=== PATIENT | male | born 1955 | race Two or more races ===

== ENCOUNTER 2017-03-13 17:05 | Inpatient (IN) | payer MEDICAID ==
[~2017-03-13] VITALS: Ht 170.2 cm; Wt 57.7 kg
[2017-03-13 19:44] LABS: Basophils # (auto) 0 uL; Basophils % (auto) 0.3 % (0.0-2.0); Eosinophils # (auto) 0.1 uL; Eosinophils % (auto) 0.6 % (0.0-7.0); Hematocrit 37.4 % (41.0-53.0); Hemoglobin 12.7 g/dL (13.5-17.5); Lymphocytes # (auto) 1.7 uL; Lymphocytes % (auto) 18.7 % (10.0-50.0); Mean Corpuscular Hemoglobin 29.3 pg (28.0-32.0); Mean Corpuscular Volume 86.2 fL (80.0-100.0); Monocytes # (auto) 0.6 uL; Monocytes % (auto) 6.3 % (0.0-12.0); Neutrophils # (auto) 6.8 uL; Neutrophils % (auto) 74.1 % (37.0-80.0); Platelet Count (auto) 307 10^3/uL (140-450); Red Blood Cells 4.33 10^6/uL (4.5-5.90); White Blood Cell 9.2 10^3/uL (4.4-10.8)
[2017-03-13 20:00] LABS: BUN/Creatinine Ratio 32.5; Calcium 8.5 mg/dL (8.5-10.1); Potassium 3.9 mmol/L (3.5-5.1)
[2017-03-13 20:03] LABS: Bilirubin, Total 0.2 mg/dL (0.2-1.0); Total Protein 6.8 g/dL (6.4-8.2)
[2017-03-14] MEDS ORDERED: SODIUM CHLORIDE 0.9% 1,000 ML IV SCH (06:36)
[2017-03-14] MEDS ORDERED: ACETAMINOPHEN 325 MG TAB PO PRN (06:45)
[2017-03-14] MEDS ORDERED: cloNIDine HCL 0.1 MG TAB PO PRN (06:45)
[2017-03-14] MEDS ORDERED: ONDANSETRON HCL 4 MG/2 ML VIAL IV PRN (06:45)
[2017-03-14] MEDS ORDERED: TEMAZEPAM 15 MG CAP PO PRN (06:45)
[2017-03-14] MEDS ORDERED: DEXTROSE (50%) 50ML SYRG IV PRN (06:45)
[2017-03-14] MEDS: ENOXAPARIN SOD 40 MG/0.4 ML SYRINGE SC SCH (09:08)
[2017-03-14] MEDS: FAMOTIDINE 20 MG TAB PO SCH ×2 (09:08→22:16)
[2017-03-14 09:30] VITALS: BP 153/81
[2017-03-14] MEDS: HYDROcodone-ACET 5/325MG TAB PO PRN ×3 (10:15→22:15)
[2017-03-14] MEDS: InsuLIN REG 1unit/0.01ml Soln (100units/ml) SC SCH ×2 (11:38→18:17)
[2017-03-14] MEDS: ACCU-CHEK COMFORT CURVE STRIP VI SCH ×2 (11:38→18:16)
[2017-03-14] MEDS ORDERED: CLON1TAB PO (12:05)
[2017-03-14] MEDS ORDERED: INSLISPI SC (12:05)
[2017-03-14 12:30] VITALS: BP 124/79
[2017-03-14] MEDS ORDERED: cefTRIAXone 1GM/10ml IVPUSH 10 ML IV ONE (14:00)
[2017-03-14] MEDS ORDERED: CLINDAMYCIN 300MG IV 50 ML IV ONE (14:45)
[2017-03-14 15:02] LABS: Hepatitis B Surface Antibody Negative
[2017-03-14] MEDS: SODIUM CHLORIDE 0.9% 1,000 ML IV SCH (15:03)
[2017-03-14 15:13] LABS: Hepatitis B Surface Antigen Negative (Negative)
[2017-03-14 15:41] LABS: Hepatitis A Total Antibody Positive
[2017-03-14 16:02] LABS: Alcohol, Urine < 3.0 mg/dL (0-5); Amphetamine Screen, Urine NEGATIVE (NEGATIVE); Barbiturate Scree,Urine NEGATIVE (NEGATIVE); Benzodiazephine Screen, Urine NEGATIVE (NEGATIVE); Cannabinoid Screen, Urine POSITIVE (NEGATIVE); Cocaine Screen, Urine NEGATIVE (NEGATIVE); Opiate Scree,Urine NEGATIVE (NEGATIVE); Phencyclidine Screen, Urine NEGATIVE (NEGATIVE)
[2017-03-14 16:07] LABS: Urine Bacteria NONE SEEN /hpf (None Seen); Urine Blood Negative /uL (Negative); Urine WBC 1 /hpf (0 - 3)
[2017-03-14 17:05] VITALS: BP 136/83
[2017-03-14 17:10] LABS: Hepatitis B Core Total AB Positive; Hepatitis C Antibody Positive (Negative)
[2017-03-14 21:30] VITALS: BP 98/61
[2017-03-14] MEDS: CLINDAMYCIN 300MG IV 50 ML IV SCH (22:15)
[2017-03-14] MEDS: INSULIN DETEMIR(LEVEMIR) 1unit/0.01ml Soln (100units/ml) SC SCH (22:16)
[2017-03-15] MEDS: ACCU-CHEK COMFORT CURVE STRIP VI SCH ×5 (00:55→22:00)
[2017-03-15] MEDS: InsuLIN REG 1unit/0.01ml Soln (100units/ml) SC SCH ×5 (01:02→23:04)
[2017-03-15] MEDS: SODIUM CHLORIDE 0.9% 1,000 ML IV SCH ×2 (04:18→18:44)
[2017-03-15 05:00] VITALS: BP 91/55
[2017-03-15] MEDS: CLINDAMYCIN 300MG IV 50 ML IV SCH ×3 (06:18→23:03)
[2017-03-15] MEDS: INSULIN DETEMIR(LEVEMIR) 1unit/0.01ml Soln (100units/ml) SC SCH (06:19)
[2017-03-15 06:33] LABS: Basophils # (auto) 0.1 uL; Basophils % (auto) 0.6 % (0.0-2.0); Eosinophils # (auto) 0.2 uL; Eosinophils % (auto) 1.9 % (0.0-7.0); Hematocrit 38.6 % (41.0-53.0); Lymphocytes # (auto) 3.5 uL; Lymphocytes % (auto) 31.4 % (10.0-50.0); Mean Corpuscular Hemoglobin 28.9 pg (28.0-32.0); Mean Corpuscular Hgb Conc. 33.8 g/dL (32.0-36.0); Mean Corpuscular Volume 85.7 fL (80.0-100.0); Monocytes # (auto) 1.2 uL; Monocytes % (auto) 10.6 % (0.0-12.0); Neutrophils # (auto) 6.1 uL; Neutrophils % (auto) 55.5 % (37.0-80.0); Nucleated Red Blood Cells % 0.2 %; Platelet Count (auto) 338 10^3/uL (140-450); Red Blood Cells 4.51 10^6/uL (4.5-5.90); Red Cell Distribution Width 15.1 % (11.8-14.3)
[2017-03-15 06:38] LABS: Albumin 2.6 g/dL (3.4-5.0); Calcium 8.3 mg/dL (8.5-10.1); Potassium 3.6 mmol/L (3.5-5.1)
[2017-03-15 06:43] LABS: Bilirubin, Total 0.2 mg/dL (0.2-1.0); Total Protein 6.1 g/dL (6.4-8.2)
[2017-03-15 06:46] LABS: BUN/Creatinine Ratio 35.1
[2017-03-15 09:00] VITALS: BP 130/77
[2017-03-15] MEDS: FAMOTIDINE 20 MG TAB PO SCH ×2 (09:30→23:03)
[2017-03-15] MEDS: ENOXAPARIN SOD 40 MG/0.4 ML SYRINGE SC SCH (09:31)
[2017-03-15] MEDS: cefTRIAXone 1GM/10ml IVPUSH 10 ML IV SCH (09:31)
[2017-03-15 13:00] VITALS: BP 140/78
[2017-03-15] MEDS ORDERED: DEXTROSE (50%) 50ML SYRG IV PRN (14:15)
[2017-03-15 17:08] VITALS: BP 121/81
[2017-03-15] MEDS: HYDROcodone-ACET 5/325MG TAB PO PRN (17:36)
[2017-03-15 22:00] VITALS: BP 123/80
[2017-03-15] MEDS: Boost Glucose Control 8 Ounces PO SCH (22:00)
[2017-03-15] MEDS ORDERED: INSULIN DETEMIR(LEVEMIR) 1unit/0.01ml Soln (100units/ml) SC SCH (22:00)
[2017-03-15] MEDS: MULTIPLE VITAMINS W/ MINERALS TAB PO SCH (23:03)
[2017-03-15] MEDS: ASCORBIC ACID 500 MG TAB PO SCH (23:04)
[2017-03-16 05:00] VITALS: BP 138/82
[2017-03-16] MEDS: CLINDAMYCIN 300MG IV 50 ML IV SCH ×3 (06:03→22:49)
[2017-03-16] MEDS: InsuLIN REG 1unit/0.01ml Soln (100units/ml) SC SCH ×5 (06:27→23:55)
[2017-03-16] MEDS: ACCU-CHEK COMFORT CURVE STRIP VI SCH ×4 (06:27→22:00)
[2017-03-16 07:20] LABS: Basophils # (auto) 0 uL; Basophils % (auto) 0.6 % (0.0-2.0); Eosinophils # (auto) 0.1 uL; Hematocrit 38.5 % (41.0-53.0); Lymphocytes # (auto) 1.5 uL; Lymphocytes % (auto) 22.8 % (10.0-50.0); Mean Corpuscular Hemoglobin 29.3 pg (28.0-32.0); Mean Corpuscular Hgb Conc. 33.9 g/dL (32.0-36.0); Mean Corpuscular Volume 86.4 fL (80.0-100.0); Monocytes # (auto) 0.5 uL; Monocytes % (auto) 7.1 % (0.0-12.0); Neutrophils # (auto) 4.4 uL; Neutrophils % (auto) 67.5 % (37.0-80.0); Nucleated Red Blood Cells % 0.2 %; Platelet Count (auto) 261 10^3/uL (140-450); Red Blood Cells 4.45 10^6/uL (4.5-5.90); Red Cell Distribution Width 14.9 % (11.8-14.3); White Blood Cell 6.5 10^3/uL (4.4-10.8)
[2017-03-16 07:38] LABS: Potassium 3.9 mmol/L (3.5-5.1)
[2017-03-16 07:46] LABS: BUN/Creatinine Ratio 43.3
[2017-03-16 08:54] VITALS: BP 126/79
[2017-03-16] MEDS: SODIUM CHLORIDE 0.9% 1,000 ML IV SCH ×2 (08:54→23:12)
[2017-03-16] MEDS: cefTRIAXone 1GM/10ml IVPUSH 10 ML IV SCH (09:13)
[2017-03-16] MEDS: FAMOTIDINE 20 MG TAB PO SCH ×2 (09:14→23:54)
[2017-03-16] MEDS: MULTIPLE VITAMINS W/ MINERALS TAB PO SCH ×2 (09:14→23:54)
[2017-03-16] MEDS: ASCORBIC ACID 500 MG TAB PO SCH ×2 (09:14→23:54)
[2017-03-16] MEDS: ENOXAPARIN SOD 40 MG/0.4 ML SYRINGE SC SCH (09:14)
[2017-03-16] MEDS: Boost Glucose Control 8 Ounces PO SCH ×2 (09:14→22:00)
[2017-03-16 13:00] VITALS: BP 166/89
[2017-03-16] MEDS ORDERED: DEXTROSE (50%) 50ML SYRG IV PRN (14:00)
[2017-03-16 17:00] VITALS: BP 118/82
[2017-03-16 21:41] VITALS: BP 140/87
[2017-03-16] MEDS: INSULIN DETEMIR(LEVEMIR) 1unit/0.01ml Soln (100units/ml) SC SCH (23:55)
[2017-03-17 05:00] VITALS: BP 127/74
[2017-03-17] MEDS: CLINDAMYCIN 300MG IV 50 ML IV SCH ×3 (06:26→22:10)
[2017-03-17] MEDS: ACCU-CHEK COMFORT CURVE STRIP VI SCH ×4 (06:36→22:08)
[2017-03-17] MEDS: InsuLIN REG 1unit/0.01ml Soln (100units/ml) SC SCH ×4 (06:36→22:09)
[2017-03-17 09:00] VITALS: BP 126/67
[2017-03-17] MEDS: ASCORBIC ACID 500 MG TAB PO SCH ×2 (09:22→22:10)
[2017-03-17] MEDS: ENOXAPARIN SOD 40 MG/0.4 ML SYRINGE SC SCH (09:22)
[2017-03-17] MEDS: MULTIPLE VITAMINS W/ MINERALS TAB PO SCH ×2 (09:22→22:10)
[2017-03-17] MEDS: cefTRIAXone 1GM/10ml IVPUSH 10 ML IV SCH (09:22)
[2017-03-17] MEDS: Boost Glucose Control 8 Ounces PO SCH ×2 (09:22→22:11)
[2017-03-17] MEDS: FAMOTIDINE 20 MG TAB PO SCH ×2 (09:22→22:10)
[2017-03-17] MEDS: SODIUM CHLORIDE 0.9% 1,000 ML IV SCH (09:23)
[2017-03-17 13:13] VITALS: BP 140/80
[2017-03-17 17:00] VITALS: BP 128/54
[2017-03-17 21:56] VITALS: BP 125/78
[2017-03-17] MEDS: INSULIN DETEMIR(LEVEMIR) 1unit/0.01ml Soln (100units/ml) SC SCH (22:10)
[2017-03-18] MEDS: SODIUM CHLORIDE 0.9% 1,000 ML IV SCH ×2 (03:48→18:06)
[2017-03-18 05:00] VITALS: BP 133/90
[2017-03-18] MEDS: CLINDAMYCIN 300MG IV 50 ML IV SCH (06:00)
[2017-03-18] MEDS: ACCU-CHEK COMFORT CURVE STRIP VI SCH ×3 (06:42→17:00)
[2017-03-18] MEDS: InsuLIN REG 1unit/0.01ml Soln (100units/ml) SC SCH (06:42)
[2017-03-18] MEDS ORDERED: INSULIN DETEMIR(LEVEMIR) 1unit/0.01ml Soln (100units/ml) SC SCH (07:00)
[2017-03-18 09:00] VITALS: BP 127/74
[2017-03-18] MEDS: ENOXAPARIN SOD 40 MG/0.4 ML SYRINGE SC SCH (10:38)
[2017-03-18] MEDS: ASCORBIC ACID 500 MG TAB PO SCH (10:38)
[2017-03-18] MEDS: FAMOTIDINE 20 MG TAB PO SCH (10:39)
[2017-03-18] MEDS: MULTIPLE VITAMINS W/ MINERALS TAB PO SCH (10:39)
[2017-03-18] MEDS: Boost Glucose Control 8 Ounces PO SCH (10:40)
[2017-03-18] MEDS: cefTRIAXone 1GM/10ml IVPUSH 10 ML IV SCH (11:13)
[2017-03-18] MEDS ORDERED: DEXTROSE (50%) 50ML SYRG IV PRN (12:00)
[2017-03-18 13:28] VITALS: BP 160/88
[2017-03-18 17:00] VITALS: BP 147/80
[2017-03-18] MEDS ORDERED: InsuLIN REG 1unit/0.01ml Soln (100units/ml) SC SCH (17:00)
[2017-03-18] MEDS ORDERED: ACCU-CHEK COMFORT CURVE STRIP VI SCH (17:00)
[2017-03-18 18:09] VITALS: BP 147/80
[2017-05-31] MEDS ORDERED: CLIN1CAP3 PO (12:01)
[2017-05-31] MEDS ORDERED: ASP81EC PO (12:01)
[2017-05-31] MEDS ORDERED: METF-372 PO (12:01)
[2017-05-31] MEDS ORDERED: ATOR20TA50 PO (12:01)
[2017-05-31] MEDS ORDERED: GLY5T PO (12:01)
[2017-05-31] MEDS ORDERED: LEVO750T64 PO (12:01)
== END 2017-03-18 18:40 | disposition home health service (06) | DRG 720 ==
LOC: EDBD 17:05 → ER 17:05 → OVERFLOW 17:06 → WEST WING 03-14 09:33
PROVIDERS: ADMIT Nurse Practitioner; ATTEND Internal Medicine
DX: A41.01 Sepsis due to Methicillin susceptible Staphylococcus aureus (principal); E44.0 Moderate protein-calorie malnutrition; E11.65 Type 2 diabetes mellitus with hyperglycemia; S91.002A Unspecified open wound, left ankle, initial encounter; I10 Essential (primary) hypertension; A41.89 Other specified sepsis; G47.00 Insomnia, unspecified; Z60.2 Problems related to living alone; R62.7 Adult failure to thrive; B19.20 Unspecified viral hepatitis C without hepatic coma; F17.210 Nicotine dependence, cigarettes, uncomplicated; X58.XXXA Exposure to other specified factors, initial encounter; Z89.511 Acquired absence of right leg below knee; Z79.899 Other long term (current) drug therapy; Y93.89 Activity, other specified; Y92.89 Other specified places as the place of occurrence of the external cause; Y99.8 Other external cause status
CPT/HCPCS: 36415; 73590; 80048; 80053; 80307; 81001; 82962; 83036; 83735; 85025; 86704; 86706; 86708; 86803; 87040; 87077; 87186; 87205; 87340; 93005; 96360; 96372; 97163; J1815; J3490

== ENCOUNTER 2017-04-30 16:38 | Emergency (ER) | payer MEDICAID ==
[~2017-04-30] VITALS: Ht 167.6 cm; Wt 68.0 kg
[~2017-04-30 16:38] MED LIST: CLON1TAB PO; INSLISPI SC
[2017-04-30 20:44] LABS: Urine Bacteria NONE SEEN /hpf (None Seen); Urine Blood Negative /uL (Negative); Urine Specific Gravity 1.031 (1.001-1.035); Urine WBC <1 /hpf (0 - 3)
[2017-04-30 21:22] LABS: Basophils # (auto) 0 uL; Basophils % (auto) 0.5 % (0.0-2.0); Eosinophils # (auto) 0.1 uL; Eosinophils % (auto) 0.9 % (0.0-7.0); Hematocrit 47.2 % (41.0-53.0); Lymphocytes # (auto) 1.5 uL; Lymphocytes % (auto) 15.7 % (10.0-50.0); Mean Corpuscular Hemoglobin 29.2 pg (28.0-32.0); Mean Corpuscular Hgb Conc. 33.9 g/dL (32.0-36.0); Mean Corpuscular Volume 86.1 fL (80.0-100.0); Monocytes # (auto) 0.6 uL; Monocytes % (auto) 6.6 % (0.0-12.0); Neutrophils # (auto) 7.4 uL; Neutrophils % (auto) 76.3 % (37.0-80.0); Nucleated Red Blood Cells % 0.1 %; Platelet Count (auto) 252 10^3/uL (140-450); Red Blood Cells 5.48 10^6/uL (4.5-5.90); White Blood Cell 9.7 10^3/uL (4.4-10.8)
[2017-04-30 21:35] LABS: Albumin 3.5 g/dL (3.4-5.0); BUN/Creatinine Ratio 19.5; Bilirubin, Total 0.4 mg/dL (0.2-1.0); Calcium 9.3 mg/dL (8.5-10.1); Potassium 4.2 mmol/L (3.5-5.1); Total Protein 9.2 g/dL (6.4-8.2)
[2017-04-30 21:37] LABS: INR 0.88 (0.9-1.15); Partial Thromboplastin Time 24.2 sec (22.64-33.71); Prothrombin Time 9.6 sec (9.37-12.3)
[2017-04-30] MEDS ORDERED: SODIUM CHLORIDE 0.9% 1,000 ML IV ONE (23:00)
[2017-05-01] MEDS ORDERED: InsuLIN REG 1unit/0.01ml Soln (100units/ml) IV ONE (00:15)
[2017-05-01 02:37] VITALS: BP 144/94
[2017-05-31] MEDS ORDERED: ASP81EC PO (12:01)
[2017-05-31] MEDS ORDERED: METF-372 PO (12:01)
[2017-05-31] MEDS ORDERED: ATOR20TA50 PO (12:01)
[2017-05-31] MEDS ORDERED: GLY5T PO (12:01)
[2017-05-31] MEDS ORDERED: CLIN1CAP3 PO (12:01)
[2017-05-31] MEDS ORDERED: LEVO750T64 PO (12:01)
== END 2017-05-01 03:49 | disposition home or self-care (01) ==
LOC: EDBD 16:38 → ER 16:38
DX: L03.116 Cellulitis of left lower limb (principal); E11.9 Type 2 diabetes mellitus without complications; I10 Essential (primary) hypertension; F12.10 Cannabis abuse, uncomplicated; F10.10 Alcohol abuse, uncomplicated; Z86.19 Personal history of other infectious and parasitic diseases; Z79.4 Long term (current) use of insulin
CPT/HCPCS: 36415; 80053; 81001; 82010; 82962; 85025; 85610; 85730; 87040; 96361; 96374; 99284; J7030; 96360

== ENCOUNTER 2017-11-20 15:50 | Emergency (ER) | payer MEDICAID ==
[~2017-11-20] VITALS: Ht 170.2 cm; Wt 59.0 kg
[~2017-11-20 15:50] MED LIST changes: +ASP81EC PO; +ATOR20TA50 PO; +CLIN1CAP3 PO; +GLY5T PO; +LEVO750T64 PO; +METF-372 PO
[2017-11-20 18:36] LABS: Basophils # (auto) 0.1 uL; Basophils % (auto) 0.7 % (0.0-2.0); Eosinophils # (auto) 0.1 uL; Eosinophils % (auto) 1.6 % (0.0-7.0); Hematocrit 45.5 % (41.0-53.0); Hemoglobin 15.6 g/dL (13.5-17.5); Lymphocytes # (auto) 2.5 uL; Lymphocytes % (auto) 27.6 % (10.0-50.0); Mean Corpuscular Hgb Conc. 34.2 g/dL (32.0-36.0); Mean Corpuscular Volume 87.7 fL (80.0-100.0); Monocytes # (auto) 0.8 uL; Neutrophils # (auto) 5.4 uL; Neutrophils % (auto) 61.1 % (37.0-80.0); Nucleated Red Blood Cells % 0.1 %; Platelet Count (auto) 234 10^3/uL (140-450); Red Blood Cells 5.19 10^6/uL (4.5-5.90); Red Cell Distribution Width 14.7 % (11.8-14.3); White Blood Cell 8.9 10^3/uL (4.4-10.8)
[2017-11-20 18:56] LABS: Alanine Aminotransferase 131 U/L (16-61); Albumin 3.6 g/dL (3.4-5.0); Anion Gap 14 (5-15); Aspartate Aminotransferase 74 U/L (15-37); BUN/Creatinine Ratio 22.9; Blood Urea Nitrogen 22 mg/dL (7-18); Calcium 8.8 mg/dL (8.5-10.1); Carbon Dioxide 20 mmol/L (21-32); Chloride 100 mmol/L (98-107); GFR African American 102 mL/min; GFR Non-African American 84 mL/min; Glucose 321 mg/dL (74-106); Sodium 134 mmol/L (136-145)
[2017-11-20 18:59] LABS: Alkaline Phosphatase 107 U/L (45-117); Bilirubin, Total 0.5 mg/dL (0.2-1.0); Total Protein 7.9 g/dL (6.4-8.2)
[2017-11-21] MEDS ORDERED: InsuLIN REG 1unit/0.01ml Soln (100units/ml) IV ONE (01:45)
[2017-11-21] MEDS ORDERED: SODIUM CHLORIDE 0.9% 1,000 ML IV ONE (01:45)
[2017-11-21 02:08] VITALS: BP 136/71
[2017-11-21] MEDS ORDERED: InsuLIN REG 1unit/0.01ml Soln (100units/ml) SC ONE (02:15)
== END 2017-11-21 02:23 | disposition home or self-care (01) ==
LOC: ER 15:50 → EDUNIT# 15:50 → ER 11-21 02:23
DX: E11.65 Type 2 diabetes mellitus with hyperglycemia (principal); E78.5 Hyperlipidemia, unspecified; I10 Essential (primary) hypertension; F17.210 Nicotine dependence, cigarettes, uncomplicated; Z79.82 Long term (current) use of aspirin; Z79.899 Other long term (current) drug therapy; Z79.84 Long term (current) use of oral hypoglycemic drugs; Z89.511 Acquired absence of right leg below knee; Z90.49 Acquired absence of other specified parts of digestive tract; Z86.19 Personal history of other infectious and parasitic diseases
CPT/HCPCS: 36415; 71046; 80053; 82962; 85025; 96372; 99285; J1815; J7030

== ENCOUNTER 2017-12-19 15:34 | Inpatient (IN) | payer MEDICAID ==
[~2017-12-19] VITALS: Ht 170.2 cm; Wt 58.0 kg
[2017-12-19] MEDS ORDERED: SODIUM CHLORIDE 0.9% 1,000 ML IV ONE (15:48)
[2017-12-19 16:51] LABS: Basophils # (auto) 0.1 uL; Basophils % (auto) 1.2 % (0.0-2.0); Eosinophils # (auto) 0.1 uL; Eosinophils % (auto) 1.4 % (0.0-7.0); Hematocrit 40.9 % (41.0-53.0); Hemoglobin 13.9 g/dL (13.5-17.5); Lymphocytes # (auto) 1.9 uL; Lymphocytes % (auto) 29.3 % (10.0-50.0); Mean Corpuscular Hemoglobin 30.4 pg (28.0-32.0); Mean Corpuscular Volume 89.6 fL (80.0-100.0); Monocytes # (auto) 0.6 uL; Monocytes % (auto) 8.7 % (0.0-12.0); Neutrophils # (auto) 3.9 uL; Neutrophils % (auto) 59.4 % (37.0-80.0); Nucleated Red Blood Cells % 0.1 %; Platelet Count (auto) 186 10^3/uL (140-450); Red Blood Cells 4.57 10^6/uL (4.5-5.90); Red Cell Distribution Width 14.8 % (11.8-14.3); White Blood Cell 6.6 10^3/uL (4.4-10.8)
[2017-12-19 17:00] LABS: Albumin 3.4 g/dL (3.4-5.0); Magnesium 2.2 mg/dL (1.6-2.6); Potassium 4.1 mmol/L (3.5-5.1)
[2017-12-19] MEDS ORDERED: InsuLIN REG 1unit/0.01ml Soln (100units/ml) IV ONE (17:00)
[2017-12-19 17:10] LABS: BUN/Creatinine Ratio 15.8; Bilirubin, Total 0.5 mg/dL (0.2-1.0); Total Protein 7.3 g/dL (6.4-8.2)
[2017-12-19] MEDS: SODIUM CHLORIDE 0.9% 1,000 ML IV SCH ×2 (17:11→23:09)
[2017-12-19] MEDS ORDERED: ONDANSETRON HCL 4 MG/2 ML VIAL IV PRN (17:15)
[2017-12-19] MEDS ORDERED: DEXTROSE (50%) 50ML SYRG IV PRN (17:15)
[2017-12-19] MEDS ORDERED: MORPHINE SULFATE 4 MG/ML SYR/VIAL IV PRN ×2 (17:15)
[2017-12-19] MEDS ORDERED: ACETAMINOPHEN 500 MG TAB PO PRN (17:15)
[2017-12-19] MEDS ORDERED: TEMAZEPAM 15 MG CAP PO PRN (17:15)
[2017-12-19] MEDS ORDERED: LORazepam 0.5 MG TAB PO PRN (17:15)
[2017-12-19] MEDS ORDERED: NITROGLYCERIN 0.4 MG SL TAB SL PRN (17:15)
[2017-12-19] MEDS ORDERED: LACTULOSE 20Gm/30ML SOLN PO PRN (17:15)
[2017-12-19] MEDS: HYDROcodone-ACET 5/325MG TAB PO PRN (17:40)
[2017-12-19] MEDS: glyBURIDE 5 MG TAB PO SCH (18:00)
[2017-12-19 18:32] VITALS: BP 124/87
[2017-12-19] MEDS: ACCU-CHEK COMFORT CURVE STRIP VI SCH (20:21)
[2017-12-19] MEDS: InsuLIN REG 1unit/0.01ml Soln (100units/ml) SC SCH (20:22)
[2017-12-19 20:24] LABS: Lactic Acid w/Reflex 2.2 mmol/L (0.4-2.0)
[2017-12-19] MEDS: clonazePAM 0.5 MG TAB PO SCH (21:35)
[2017-12-19] MEDS: ATORVASTATIN 20 MG TAB PO SCH (21:36)
[2017-12-19 21:48] VITALS: BP 120/74
[2017-12-20] MEDS: ACCU-CHEK COMFORT CURVE STRIP VI SCH ×6 (03:44→21:24)
[2017-12-20] MEDS: InsuLIN REG 1unit/0.01ml Soln (100units/ml) SC SCH ×6 (03:44→21:23)
[2017-12-20 04:45] VITALS: BP 131/68
[2017-12-20] MEDS: SODIUM CHLORIDE 0.9% 1,000 ML IV SCH ×3 (06:31→21:23)
[2017-12-20 06:38] LABS: Urine Bacteria NONE SEEN /hpf (None Seen); Urine Blood Negative /uL (Negative); Urine Mucus FEW (None Seen); Urine Specific Gravity 1.013 (1.001-1.035); Urine WBC 1 /hpf (0 - 3)
[2017-12-20 06:50] LABS: Alcohol, Urine < 3.0 mg/dL (0-5); Amphetamine Screen, Urine NEGATIVE (NEGATIVE); Barbiturate Scree,Urine NEGATIVE (NEGATIVE); Benzodiazephine Screen, Urine NEGATIVE (NEGATIVE); Cannabinoid Screen, Urine NEGATIVE (NEGATIVE); Cocaine Screen, Urine NEGATIVE (NEGATIVE); Opiate Scree,Urine NEGATIVE (NEGATIVE); Phencyclidine Screen, Urine NEGATIVE (NEGATIVE)
[2017-12-20] MEDS: glyBURIDE 5 MG TAB PO SCH ×2 (08:00→17:52)
[2017-12-20 08:07] LABS: Albumin 2.7 g/dL (3.4-5.0); Calcium 8.1 mg/dL (8.5-10.1); Potassium 3.5 mmol/L (3.5-5.1)
[2017-12-20 08:12] LABS: Bilirubin, Total 0.4 mg/dL (0.2-1.0); Total Protein 5.8 g/dL (6.4-8.2)
[2017-12-20 09:00] VITALS: BP 129/70
[2017-12-20] MEDS: ENOXAPARIN SOD 40 MG/0.4 ML SYRINGE SC SCH (10:00)
[2017-12-20] MEDS: clonazePAM 0.5 MG TAB PO SCH ×2 (10:00→21:24)
[2017-12-20] MEDS: ASPirin-EC 81 mg tab PO SCH (10:01)
[2017-12-20] MEDS: PANTOPRAZOLE 40 MG TAB PO SCH (10:01)
[2017-12-20 13:00] VITALS: BP 124/74
[2017-12-20 17:00] VITALS: BP 131/81
[2017-12-20] MEDS: HYDROcodone-ACET 5/325MG TAB PO PRN (21:25)
[2017-12-20] MEDS: ATORVASTATIN 20 MG TAB PO SCH (21:25)
[2017-12-20 22:21] VITALS: BP 142/93
[2017-12-21] MEDS: InsuLIN REG 1unit/0.01ml Soln (100units/ml) SC SCH ×5 (01:22→17:06)
[2017-12-21] MEDS: ACCU-CHEK COMFORT CURVE STRIP VI SCH ×5 (01:22→16:00)
[2017-12-21] MEDS: SODIUM CHLORIDE 0.9% 1,000 ML IV SCH ×3 (01:23→15:51)
[2017-12-21 05:39] VITALS: BP 135/80
[2017-12-21] MEDS: HYDROcodone-ACET 5/325MG TAB PO PRN ×2 (08:11→15:47)
[2017-12-21] MEDS: glyBURIDE 5 MG TAB PO SCH (08:13)
[2017-12-21 09:00] VITALS: BP 127/88
[2017-12-21] MEDS: clonazePAM 0.5 MG TAB PO SCH (10:06)
[2017-12-21] MEDS: ENOXAPARIN SOD 40 MG/0.4 ML SYRINGE SC SCH (10:06)
[2017-12-21] MEDS: PANTOPRAZOLE 40 MG TAB PO SCH (10:22)
[2017-12-21] MEDS: ASPirin-EC 81 mg tab PO SCH (10:22)
[2017-12-21 13:00] VITALS: BP 124/83
[2017-12-21 17:02] VITALS: BP 136/84
[2017-12-21 18:45] VITALS: BP 127/88
[2017-12-21] MEDS ORDERED: Glucerna Carbsteady SHAKE Vanilla 8oz PO SCH (22:00)
== END 2017-12-21 20:18 | disposition home or self-care (01) | DRG 420 ==
LOC: ER 15:38 → TELE 15:39 → TELE-WESTW 19:10
PROVIDERS: ADMIT Internal Medicine; ATTEND Internal Medicine Pulmonary Disease
DX: E11.65 Type 2 diabetes mellitus with hyperglycemia (principal); E11.22 Type 2 diabetes mellitus with diabetic chronic kidney disease; E11.42 Type 2 diabetes mellitus with diabetic polyneuropathy; I12.9 Hypertensive chronic kidney disease with stage 1 through stage 4 chronic kidney disease, or unspecified chronic kidney disease; N18.9 Chronic kidney disease, unspecified; E87.1 Hypo-osmolality and hyponatremia; E11.51 Type 2 diabetes mellitus with diabetic peripheral angiopathy without gangrene; F17.210 Nicotine dependence, cigarettes, uncomplicated; E78.5 Hyperlipidemia, unspecified; Z79.4 Long term (current) use of insulin; Z83.3 Family history of diabetes mellitus; Z85.118 Personal history of other malignant neoplasm of bronchus and lung; Z89.511 Acquired absence of right leg below knee; Z91.19 Patient's noncompliance with other medical treatment and regimen; Z90.49 Acquired absence of other specified parts of digestive tract
CPT/HCPCS: 36415; 73562; 80053; 80061; 80307; 81001; 82962; 83036; 83605; 83735; 85025; 87040; 87081; 94761; 96361; 96374; J1815

== ENCOUNTER 2018-03-17 12:59 | Emergency (ER) | payer MEDICAID ==
[~2018-03-17] VITALS: Ht 167.6 cm; Wt 59.0 kg
[~2018-03-17 12:59] MED LIST changes: -CLIN1CAP3 PO; -LEVO750T64 PO
[2018-03-17 13:33] VITALS: BP 110/74
== END 2018-03-17 16:30 | disposition home or self-care (01) ==
LOC: ER 13:03
DX: M79.604 Pain in right leg (principal); E78.5 Hyperlipidemia, unspecified; E11.22 Type 2 diabetes mellitus with diabetic chronic kidney disease; I12.9 Hypertensive chronic kidney disease with stage 1 through stage 4 chronic kidney disease, or unspecified chronic kidney disease; N18.9 Chronic kidney disease, unspecified; F17.210 Nicotine dependence, cigarettes, uncomplicated; Z79.82 Long term (current) use of aspirin; Z79.899 Other long term (current) drug therapy; Z79.4 Long term (current) use of insulin; Z90.49 Acquired absence of other specified parts of digestive tract; Z89.511 Acquired absence of right leg below knee; Z86.19 Personal history of other infectious and parasitic diseases
CPT/HCPCS: 73560

== ENCOUNTER 2018-03-26 14:09 | Emergency (ER) | payer MEDICAID ==
[~2018-03-26] VITALS: Ht 170.2 cm; Wt 63.5 kg
[2018-03-27] MEDS ORDERED: SODIUM CHLORIDE 0.9% 1,000 ML IV ONE ×2 (09:14)
[2018-03-27] MEDS ORDERED: InsuLIN REG 1unit/0.01ml Soln (100units/ml) IV ONE (09:15)
[2018-03-27 09:35] VITALS: BP 131/80
== END 2018-03-27 10:58 | disposition home or self-care (01) ==
LOC: EDBD 14:09 → EDUNIT# 14:09 → ER 14:19
DX: E11.65 Type 2 diabetes mellitus with hyperglycemia (principal); I12.9 Hypertensive chronic kidney disease with stage 1 through stage 4 chronic kidney disease, or unspecified chronic kidney disease; E11.22 Type 2 diabetes mellitus with diabetic chronic kidney disease; N18.9 Chronic kidney disease, unspecified; F17.210 Nicotine dependence, cigarettes, uncomplicated; Z90.49 Acquired absence of other specified parts of digestive tract; Z89.511 Acquired absence of right leg below knee
CPT/HCPCS: 82962; 93005; 96361; 96374; 99283; J1815; J7030

== ENCOUNTER 2020-07-05 19:11 | Emergency (ER) | payer MEDICARE, MEDICAID ==
[~2020-07-05] VITALS: Ht 170.2 cm; Wt 70.3 kg
[~2020-07-05 19:11] MED LIST changes: -ASP81EC PO; +ASPI-394 PO; -GLY5T PO; +GLYB5TAB9 PO
[2020-07-05] MEDS ORDERED: SODIUM CHLORIDE 0.9% 1,000 ML IVB ONE (19:45)
[2020-07-05 20:33] LABS: Basophils # (auto) 0.1 10 ^3/uL (0-0.2); Basophils % (auto) 0.6 % (0.0-2.0); Eosinophils # (auto) 0.1 10 ^3/uL (0-0.8); Eosinophils % (auto) 1.3 % (0.0-7.0); Hematocrit 32.8 % (41.0-53.0); Hemoglobin 11.2 g/dL (13.5-17.5); Lymphocytes # (auto) 0.8 10 ^3/uL (0.4-5.4); Lymphocytes % (auto) 8.5 % (10.0-50.0); Mean Corpuscular Hemoglobin 29.3 pg (28.0-32.0); Mean Corpuscular Hgb Conc. 34.2 g/dL (32.0-36.0); Mean Corpuscular Volume 85.8 fL (80.0-100.0); Monocytes # (auto) 0.7 10 ^3/uL (0-1.3); Neutrophils % (auto) 82.6 % (37.0-80.0); Platelet Count (auto) 170 10^3/uL (140-450); Red Blood Cells 3.82 10^6/uL (4.5-5.90); Red Cell Distribution Width 14.9 % (11.8-14.3); White Blood Cell 9.7 10^3/uL (4.4-10.8)
[2020-07-05 20:49] LABS: Albumin 2.6 g/dL (3.4-5.0); Calcium 8.4 mg/dL (8.5-10.1); Magnesium 2.3 mg/dL (1.6-2.6); Potassium 3.4 mmol/L (3.5-5.1)
[2020-07-05 20:53] LABS: Bilirubin, Total 0.3 mg/dL (0.2-1.0); Total Protein 6.2 g/dL (6.4-8.2)
[2020-07-05 21:21] LABS: Urine Bacteria NONE SEEN /hpf (None Seen); Urine Blood 2+ /uL (Negative); Urine Mucus FEW (None Seen); Urine Specific Gravity 1.035 (1.001-1.035); Urine WBC 5 /hpf (0 - 3)
[2020-07-05 21:34] LABS: Amphetamine Screen, Urine POSITIVE (NEGATIVE); Barbiturate Scree,Urine NEGATIVE (NEGATIVE); Benzodiazephine Screen, Urine NEGATIVE (NEGATIVE); Cannabinoid Screen, Urine POSITIVE (NEGATIVE); Cocaine Screen, Urine NEGATIVE (NEGATIVE); Opiate Scree,Urine NEGATIVE (NEGATIVE); Phencyclidine Screen, Urine NEGATIVE (NEGATIVE)
[2020-07-06] MEDS ORDERED: hydrALAZINE HCL 20 MG/ML VL IV ONE (01:30)
[2020-07-06] MEDS ORDERED: hydrALAZINE HCL 20 MG/ML VL ONE (01:33)
[2020-07-06 06:52] VITALS: BP 141/88
[2020-07-07 13:12] LABS: Hepatitis A Ab IgM Negative; Hepatitis B Core IgM Negative; Hepatitis B Surface Antigen Negative (Negative)
[2020-07-07 13:15] LABS: Hepatitis C Antibody Positive (Negative)
== END 2020-07-06 07:12 | disposition short-term general hospital (02) ==
LOC: EDBD 19:11 → ER 19:14
DX: G92 Toxic encephalopathy (principal); F15.10 Other stimulant abuse, uncomplicated; Z20.822 Contact with and (suspected) exposure to COVID-19; F17.210 Nicotine dependence, cigarettes, uncomplicated; E11.22 Type 2 diabetes mellitus with diabetic chronic kidney disease; N18.9 Chronic kidney disease, unspecified; I10 Essential (primary) hypertension; Z79.84 Long term (current) use of oral hypoglycemic drugs; Z79.899 Other long term (current) drug therapy
CPT/HCPCS: 36415; 70450; 71045; 80053; 80074; 80307; 80320; 81001; 82140; 83605; 83735; 84484; 85025; 87426; 93005; 96361; 96374; 99285; J0360; J7030

== ENCOUNTER 2020-10-07 17:46 | Inpatient (IN) | payer MEDICARE, MEDICAID ==
[~2020-10-07] VITALS: Ht 172.7 cm; Wt 25.6 kg
[2020-10-07] MEDS ORDERED: SODIUM CHLORIDE 0.9% 1,000 ML IV ONE (18:00)
[2020-10-07] MEDS ORDERED: ONDANSETRON HCL 4 MG/2 ML VIAL ONE (18:07)
[2020-10-07] MEDS ORDERED: ONDANSETRON HCL 4 MG/2 ML VIAL IV ONE (18:15)
[2020-10-07] MEDS ORDERED: PANTOPRAZOLE 40mg/50ML NS AE 50 ML IV ONE (18:15)
[2020-10-07] MEDS ORDERED: PANTOPRAZOLE 40 MG/10 ML VIAL INJ IV ONE (18:15)
[2020-10-07] MEDS: NOREPINEPHRINE 8 MG/250ML KIT 250 ML IV SCH (19:00)
[2020-10-07 20:32] LABS: Basophils # (auto) 0.1 10 ^3/uL (0-0.2); Basophils % (auto) 0.6 % (0.0-2.0); Eosinophils # (auto) 0 10 ^3/uL (0-0.8); Eosinophils % (auto) 0.2 % (0.0-7.0); Hematocrit 27.8 % (41.0-53.0); Hemoglobin 9.3 g/dL (13.5-17.5); Lymphocytes # (auto) 0.5 10 ^3/uL (0.4-5.4); Lymphocytes % (auto) 2.3 % (10.0-50.0); Mean Corpuscular Hemoglobin 29.6 pg (28.0-32.0); Mean Corpuscular Hgb Conc. 33.5 g/dL (32.0-36.0); Mean Corpuscular Volume 88.3 fL (80.0-100.0); Monocytes # (auto) 0.6 10 ^3/uL (0-1.3); Neutrophils # (auto) 18.4 10 ^3/uL (1.6-8.6); Neutrophils % (auto) 93.9 % (37.0-80.0); Nucleated Red Blood Cells % 0.1 %; Red Blood Cells 3.15 10^6/uL (4.5-5.90); Red Cell Distribution Width 16.3 % (11.8-14.3); White Blood Cell 19.6 10^3/uL (4.4-10.8)
[2020-10-07 20:45] LABS: Albumin 2.1 g/dL (3.4-5.0); Magnesium 2.8 mg/dL (1.6-2.6)
[2020-10-07 20:47] LABS: INR 1.12 (0.9-1.15); Partial Thromboplastin Time 26.5 sec (23.6-33.0)
[2020-10-07 20:48] LABS: Bilirubin, Total 0.6 mg/dL (0.2-1.0); Total Protein 5.8 g/dL (6.4-8.2)
[2020-10-07 21:01] LABS: Potassium 5.7 mmol/L (3.5-5.1)
[2020-10-07] MEDS ORDERED: SODIUM ZIRCONIUM CYCL 10 GM PAK PO ONE (22:30)
[2020-10-07] MEDS ORDERED: CALCIUM GLUC 1,000mg/50ml-NS 50 ML IV ONE (22:30)
[2020-10-07] MEDS ORDERED: SODIUM BICARBONATE 8.4% INJ 50ML SYRINGE IV ONE (22:30)
[2020-10-07] MEDS ORDERED: InsuLIN REG 1unit/0.01ml Soln (100units/ml) IV ONE (22:30)
[2020-10-07] MEDS ORDERED: DEXTROSE (50%) 50ML SYRG IV ONE (22:30)
[2020-10-07] MEDS ORDERED: ONDANSETRON HCL 4 MG/2 ML VIAL IV PRN (23:00)
[2020-10-07] MEDS ORDERED: MORPHINE SULF INJ 2 MG/ML SYRINGE 1ML IV PRN (23:00)
[2020-10-07] MEDS ORDERED: VANCOMYCIN PER PHARMACY 0 MG IV SCH (23:00)
[2020-10-07] MEDS ORDERED: DEXTROSE (50%) 50ML SYRG IV PRN (23:00)
[2020-10-07] MEDS ORDERED: NITROGLYCERIN 0.4 MG SL TAB SL PRN (23:00)
[2020-10-07] MEDS ORDERED: VANCOMYCIN 1GM/250ML 250 ML IV ONE (23:30)
[2020-10-08] MEDS: SODIUM CHLORIDE 0.9% 1,000 ML IV SCH ×4 (00:30→07:32)
[2020-10-08] MEDS ORDERED: ALBUMIN 25% 50 ML IV ONE (00:30)
[2020-10-08] MEDS ORDERED: MIDAZOLAM HCL 2MG/2ML 2ml VIAL (1mg/ml) IV ONE (01:00)
[2020-10-08] MEDS: metroNIDAZOLE 500MG/100ML 100 ML IV SCH ×4 (01:56→22:45)
[2020-10-08 03:25] LABS: Eosinophils # (auto) 0 10 ^3/uL (0-0.8); Neutrophils # (auto) 22.6 10 ^3/uL (1.6-8.6); Red Blood Cells 2.85 10^6/uL (4.5-5.90)
[2020-10-08 03:26] LABS: Basophils # (auto) 0.1 10 ^3/uL (0-0.2); Basophils % (auto) 0.3 % (0.0-2.0); Hematocrit 25.4 % (41.0-53.0); Hemoglobin 8.2 g/dL (13.5-17.5); Lymphocytes # (auto) 0.6 10 ^3/uL (0.4-5.4); Lymphocytes % (auto) 2.3 % (10.0-50.0); Mean Corpuscular Hgb Conc. 32.5 g/dL (32.0-36.0); Mean Corpuscular Volume 89.2 fL (80.0-100.0); Monocytes # (auto) 1.1 10 ^3/uL (0-1.3); Monocytes % (auto) 4.7 % (0.0-12.0); Neutrophils % (auto) 92.7 % (37.0-80.0); Red Cell Distribution Width 16.5 % (11.8-14.3); White Blood Cell 24.4 10^3/uL (4.4-10.8)
[2020-10-08 03:45] LABS: Albumin 2.3 g/dL (3.4-5.0); BUN/Creatinine Ratio 13.3; Calcium 7.8 mg/dL (8.5-10.1); Potassium 5.5 mmol/L (3.5-5.1)
[2020-10-08 03:47] LABS: Bilirubin, Total 0.6 mg/dL (0.2-1.0); Total Protein 5.8 g/dL (6.4-8.2)
[2020-10-08 04:36] LABS: Urine Bacteria FEW /hpf (None Seen); Urine Blood Negative /uL (Negative); Urine Hyaline Cast FEW /lpf (0 - 2); Urine Specific Gravity 1.014 (1.001-1.035); Urine WBC 6 /hpf (0 - 3)
[2020-10-08] MEDS: InsuLIN REG 1unit/0.01ml Soln (100units/ml) SC SCH ×3 (07:12→20:00)
[2020-10-08] MEDS: ACCU-CHEK COMFORT CURVE STRIP VI SCH ×4 (07:12→22:12)
[2020-10-08] MEDS: NOREPINEPHRINE 8 MG/250ML KIT 250 ML IV SCH ×2 (07:50→20:37)
[2020-10-08 09:49] LABS: Phosphorus 4.8 mg/dL (2.5-4.90); Uric Acid 13.5 mg/dL (3.5-7.2)
[2020-10-08] MEDS ORDERED: FAMOTIDINE (10MG/ML) 2ML VL IV SCH (10:00)
[2020-10-08] MEDS: SODIUM BICARBONATE 50ML VIAL 50 ML in SOD CHL 0.45% 1,000 ML IV SCH ×2 (10:26→22:54)
[2020-10-08] MEDS ORDERED: cefTRIAXone 1GM/50ML D5W 50 ML IV ONE (11:45)
[2020-10-08] MEDS ORDERED: OCTREOTIDE ACETATE 100 MCG in SODIUM CHL 0.9% 50 ML IV ONE (14:00)
[2020-10-08] MEDS: PANTOPRAZOLE 40 MG/10 ML VIAL INJ IV SCH ×2 (14:12→23:58)
[2020-10-08] MEDS: OCTREOTIDE ACETATE 500 MCG in SODIUM CHL 0.9% 99 ML IV SCH (14:45)
[2020-10-08] MEDS ORDERED: LORazepam 2MG/ML-1ML VIAL IV PRN (15:00)
[2020-10-08 15:17] LABS: Protein, Urine 154.9 mg/dL (0.0-11.9)
[2020-10-08 15:22] LABS: Creatinine, Urine 59.4 mg/dL (30.0-125.0)
[2020-10-08] MEDS: D5W/SOD CHLO 0.9% 1,000 ML IV SCH (20:29)
[2020-10-08] MEDS ORDERED: SODIUM BICARBONATE 8.4 % INJ 50ML VIAL IV ONE (21:24)
[2020-10-08] MEDS ORDERED: InsuLIN REG 1unit/0.01ml Soln (100units/ml) SC SCH (22:00)
[2020-10-09] VITALS (8 sets, daily range): BP systolic 82–173; BP diastolic 57–105
[2020-10-09] MEDS ORDERED: OCTREOTIDE ACETATE 500 MCG/ML VL ONE (02:16)
[2020-10-09] MEDS: OCTREOTIDE ACETATE 500 MCG in SODIUM CHL 0.9% 99 ML IV SCH (02:58)
[2020-10-09] MEDS: D5W/SOD CHLO 0.9% 1,000 ML IV SCH ×2 (04:30→12:30)
[2020-10-09 07:04] LABS: Basophils # (auto) 0.1 10 ^3/uL (0-0.2); Eosinophils # (auto) 0 10 ^3/uL (0-0.8); Eosinophils % (auto) 0.2 % (0.0-7.0)
[2020-10-09 07:07] LABS: Basophils % (auto) 0.5 % (0.0-2.0); Hematocrit 22.2 % (41.0-53.0); Hemoglobin 7.5 g/dL (13.5-17.5); Lymphocytes # (auto) 0.5 10 ^3/uL (0.4-5.4); Lymphocytes % (auto) 2.5 % (10.0-50.0); Mean Corpuscular Hemoglobin 29.6 pg (28.0-32.0); Mean Corpuscular Hgb Conc. 33.7 g/dL (32.0-36.0); Monocytes # (auto) 0.8 10 ^3/uL (0-1.3); Monocytes % (auto) 4.5 % (0.0-12.0); Neutrophils % (auto) 92.3 % (37.0-80.0); Red Blood Cells 2.52 10^6/uL (4.5-5.90); Red Cell Distribution Width 16.7 % (11.8-14.3); White Blood Cell 18.4 10^3/uL (4.4-10.8)
[2020-10-09] MEDS: metroNIDAZOLE 500MG/100ML 100 ML IV SCH ×3 (07:12→21:54)
[2020-10-09 07:19] LABS: Potassium 4.8 mmol/L (3.5-5.1)
[2020-10-09 07:26] LABS: Albumin 1.9 g/dL (3.4-5.0); BUN/Creatinine Ratio 15.1; Bilirubin, Total 0.6 mg/dL (0.2-1.0); Total Protein 5.2 g/dL (6.4-8.2)
[2020-10-09] MEDS: ACCU-CHEK COMFORT CURVE STRIP VI SCH ×3 (07:57→18:01)
[2020-10-09] MEDS: InsuLIN REG 1unit/0.01ml Soln (100units/ml) SC SCH ×3 (07:57→17:58)
[2020-10-09] MEDS: SODIUM BICARBONATE 50ML VIAL 50 ML in SOD CHL 0.45% 1,000 ML IV SCH ×2 (08:36→16:31)
[2020-10-09] MEDS: PANTOPRAZOLE 40 MG/10 ML VIAL INJ IV SCH ×2 (09:07→21:54)
[2020-10-09] MEDS: cefTRIAXone 1GM/50ML D5W 50 ML IV SCH (09:07)
[2020-10-09] MEDS ORDERED: diphenhdrAMINE HCL 50 MG/1 ML VL ONE (09:16)
[2020-10-09] MEDS ORDERED: LIDOCAINE VISCOUS 2% 15ML UD ONE (09:16)
[2020-10-09] MEDS ORDERED: SODIUM CHLORIDE LOCK 10 ML ONE (09:17)
[2020-10-09] MEDS ORDERED: VANCOMYCIN 1GM/250ML 250 ML IV ONE (09:45)
[2020-10-09] MEDS ORDERED: VANCOMYCIN 500 MG in D5W 5% 100 ML IV ONE (10:00)
[2020-10-09] MEDS: fentaNYL CITRATE 100 MCG/2 ML VL ONE ×2 (10:21→10:26)
[2020-10-09] MEDS: MIDAZOLAM HCL 5 MG/ML-1ML VIAL ONE ×2 (10:21→10:26)
[2020-10-09] MEDS ORDERED: PROPOFOL 100 ML IV ONE (10:49)
[2020-10-09] MEDS: PROPOFOL 100 ML IV SCH (10:50)
[2020-10-09] MEDS: fentaNYL Drip 2500mCg/250mlNS 250 ML IV SCH (11:05)
[2020-10-10] VITALS (37 sets, daily range): BP systolic 76–148; BP diastolic 45–79
[2020-10-10] MEDS: ACCU-CHEK COMFORT CURVE STRIP VI SCH ×6 (00:14→20:37)
[2020-10-10] MEDS: InsuLIN REG 1unit/0.01ml Soln (100units/ml) SC SCH ×7 (00:18→20:00)
[2020-10-10] MEDS: SODIUM BICARBONATE 50ML VIAL 50 ML in SOD CHL 0.45% 1,000 ML IV SCH ×2 (04:11→18:44)
[2020-10-10 04:51] LABS: Basophils # (auto) 0.1 10 ^3/uL (0-0.2); Hemoglobin 7.7 g/dL (13.5-17.5); Monocytes # (auto) 0.9 10 ^3/uL (0-1.3); Nucleated Red Blood Cells % 0.2 %; White Blood Cell 17.7 10^3/uL (4.4-10.8)
[2020-10-10 04:53] LABS: Basophils % (auto) 0.5 % (0.0-2.0); Eosinophils # (auto) 0.2 10 ^3/uL (0-0.8); Eosinophils % (auto) 1.1 % (0.0-7.0); Hematocrit 22.2 % (41.0-53.0); Lymphocytes # (auto) 1.1 10 ^3/uL (0.4-5.4); Lymphocytes % (auto) 6.1 % (10.0-50.0); Mean Corpuscular Hemoglobin 30.3 pg (28.0-32.0); Mean Corpuscular Hgb Conc. 34.9 g/dL (32.0-36.0); Mean Corpuscular Volume 86.9 fL (80.0-100.0); Monocytes % (auto) 5.3 % (0.0-12.0); Neutrophils # (auto) 15.4 10 ^3/uL (1.6-8.6); Red Blood Cells 2.56 10^6/uL (4.5-5.90); Red Cell Distribution Width 16.8 % (11.8-14.3)
[2020-10-10 05:05] LABS: Potassium 4.2 mmol/L (3.5-5.1)
[2020-10-10 05:08] LABS: Albumin 1.6 g/dL (3.4-5.0); BUN/Creatinine Ratio 14.9
[2020-10-10 05:12] LABS: Bilirubin, Total 0.4 mg/dL (0.2-1.0); Total Protein 4.8 g/dL (6.4-8.2)
[2020-10-10] MEDS: DEXTROSE (50%) 50ML SYRG IV PRN ×2 (06:26→06:57)
[2020-10-10] MEDS: metroNIDAZOLE 500MG/100ML 100 ML IV SCH ×3 (06:26→22:09)
[2020-10-10] MEDS ORDERED: DEXTROSE (50%) 50ML SYRG IV PRN (07:15)
[2020-10-10] MEDS: cefTRIAXone 1GM/50ML D5W 50 ML IV SCH (09:00)
[2020-10-10] MEDS: PANTOPRAZOLE 40 MG/10 ML VIAL INJ IV SCH ×2 (10:00→22:09)
[2020-10-10] MEDS: PROPOFOL 100 ML IV SCH (10:45)
[2020-10-10] MEDS ORDERED: PHENYLEPHRINE IV 250 ML IV ONE (10:48)
[2020-10-10] MEDS ORDERED: PHENYLEPHRINE IV 250 ML IV SCH (11:00)
[2020-10-10] MEDS ORDERED: VANCOMYCIN 500 MG in D5W 5% 100 ML IV ONE (11:00)
[2020-10-10] MEDS: fentaNYL Drip 2500mCg/250mlNS 250 ML IV SCH (12:09)
[2020-10-10] MEDS ORDERED: CALCIUM CHLOR(10%) 100MG/ML 10ML SYRINGE IV ONE (13:59)
[2020-10-10] MEDS ORDERED: SODIUM BICARBONATE 8.4% INJ 50ML SYRINGE IV ONE (13:59)
[2020-10-10] MEDS ORDERED: EPINEPHrine HCL 1 MG/10 ML SYRG IV ONE (13:59)
[2020-10-10] MEDS: BUMETANIDE INJECTION 12.5 MG in GIVE UN-DILUTED 0 ML IV SCH (17:55)
[2020-10-10] MEDS: NOREPINEPHRINE BITARTRATE 16 MG in SODIUM CHL 0.9% 234 ML IV SCH (17:56)
[2020-10-10] MEDS: PHENYLEPHRINE IV 250 ML IV SCH ×2 (18:44→21:16)
[2020-10-11] VITALS (64 sets, daily range): BP systolic 84–116; BP diastolic 47–68
[2020-10-11] MEDS: ACCU-CHEK COMFORT CURVE STRIP VI SCH ×5 (00:58→16:00)
[2020-10-11] MEDS: PHENYLEPHRINE IV 250 ML IV SCH ×2 (01:23→09:00)
[2020-10-11] MEDS: InsuLIN REG 1unit/0.01ml Soln (100units/ml) SC SCH ×5 (04:00→17:18)
[2020-10-11] MEDS ORDERED: SODIUM BICARBONATE 8.4% INJ 50ML SYRINGE ONE (04:36)
[2020-10-11] MEDS: SODIUM BICARBONATE 50ML VIAL 50 ML in SOD CHL 0.45% 1,000 ML IV SCH ×2 (05:05→15:31)
[2020-10-11 05:13] LABS: Mean Corpuscular Hgb Conc. 32.9 g/dL (32.0-36.0); Monocytes # (auto) 1.4 10 ^3/uL (0-1.3)
[2020-10-11 05:15] LABS: Basophils # (auto) 0.2 10 ^3/uL (0-0.2); Basophils % (auto) 0.9 % (0.0-2.0); Eosinophils # (auto) 0 10 ^3/uL (0-0.8); Eosinophils % (auto) 0.2 % (0.0-7.0); Hematocrit 23.2 % (41.0-53.0); Hemoglobin 7.6 g/dL (13.5-17.5); Lymphocytes # (auto) 0.6 10 ^3/uL (0.4-5.4); Lymphocytes % (auto) 3.4 % (10.0-50.0); Mean Corpuscular Hemoglobin 29.5 pg (28.0-32.0); Mean Corpuscular Volume 89.7 fL (80.0-100.0); Monocytes % (auto) 7.2 % (0.0-12.0); Neutrophils % (auto) 88.3 % (37.0-80.0); Nucleated Red Blood Cells % 0.2 %; Red Blood Cells 2.59 10^6/uL (4.5-5.90); Red Cell Distribution Width 17.4 % (11.8-14.3); White Blood Cell 19.2 10^3/uL (4.4-10.8)
[2020-10-11 05:28] LABS: Potassium 4.7 mmol/L (3.5-5.1)
[2020-10-11 05:35] LABS: Albumin 1.4 g/dL (3.4-5.0); BUN/Creatinine Ratio 15.4; Bilirubin, Total 0.4 mg/dL (0.2-1.0); Calcium 6.5 mg/dL (8.5-10.1); Total Protein 4.6 g/dL (6.4-8.2)
[2020-10-11] MEDS: metroNIDAZOLE 500MG/100ML 100 ML IV SCH ×2 (06:00→14:32)
[2020-10-11 09:48] LABS: Cholesterol 103 mg/dL (< 200); HDL Cholesterol 23 mg/dL (40-59); LDL Cholesterol 55 mg/dL (< 100); Triglycerides 114 mg/dL (< 150)
[2020-10-11] MEDS: PROPOFOL 100 ML IV SCH (10:45)
[2020-10-11] MEDS: fentaNYL Drip 2500mCg/250mlNS 250 ML IV SCH (10:45)
[2020-10-11] MEDS: BUMETANIDE INJECTION 12.5 MG in GIVE UN-DILUTED 0 ML IV SCH (12:30)
[2020-10-11] MEDS: PANTOPRAZOLE 40 MG/10 ML VIAL INJ IV SCH (13:40)
[2020-10-11] MEDS: cefTRIAXone 1GM/50ML D5W 50 ML IV SCH (13:40)
[2020-10-11] MEDS: NOREPINEPHRINE BITARTRATE 16 MG in SODIUM CHL 0.9% 234 ML IV SCH (17:13)
[2020-10-11] MEDS ORDERED: ATORVASTATIN 20 MG TAB PO SCH (22:00)
== END 2020-10-11 21:13 | DRG 720 ==
LOC: EDBD 17:46 → ER 17:46 → OVERFLOW 22:59 → ICU WEST 10-11 05:53
PROVIDERS: ADMIT Nurse Practitioner Family; ATTEND Family Medicine
PROC: 06HY33Z Insertion of Infusion Device into Lower Vein, Percutaneous Approach (ICD-10-PCS; 2020-10-08)
PROC: 5A1945Z Respiratory Ventilation, 24-96 Consecutive Hours (ICD-10-PCS; 2020-10-09)
PROC: 0BH17EZ Insertion of Endotracheal Airway into Trachea, Via Natural or Artificial Opening (ICD-10-PCS; 2020-10-09)
PROC: 5A12012 Performance of Cardiac Output, Single, Manual (ICD-10-PCS; 2020-10-09)
PROC: 0DJ08ZZ Inspection of Upper Intestinal Tract, Via Natural or Artificial Opening Endoscopic (ICD-10-PCS; principal; 2020-10-09 09:30)
PROC: 02HV33Z Insertion of Infusion Device into Superior Vena Cava, Percutaneous Approach (ICD-10-PCS; 2020-10-10)
DX: A41.9 Sepsis, unspecified organism (principal); J96.01 Acute respiratory failure with hypoxia; N17.0 Acute kidney failure with tubular necrosis; R65.21 Severe sepsis with septic shock; G93.41 Metabolic encephalopathy; K25.4 Chronic or unspecified gastric ulcer with hemorrhage; I82.403 Acute embolism and thrombosis of unspecified deep veins of lower extremity, bilateral; J18.9 Pneumonia, unspecified organism; K20.91 Esophagitis, unspecified with bleeding; D62 Acute posthemorrhagic anemia; E11.649 Type 2 diabetes mellitus with hypoglycemia without coma; I21.A1 Myocardial infarction type 2; G93.1 Anoxic brain damage, not elsewhere classified; N18.4 Chronic kidney disease, stage 4 (severe); I46.9 Cardiac arrest, cause unspecified; Z66 Do not resuscitate; E11.22 Type 2 diabetes mellitus with diabetic chronic kidney disease; E83.41 Hypermagnesemia; E87.1 Hypo-osmolality and hyponatremia; K74.60 Unspecified cirrhosis of liver; E87.5 Hyperkalemia; E88.09 Other disorders of plasma-protein metabolism, not elsewhere classified; D63.1 Anemia in chronic kidney disease; E86.0 Dehydration; Z20.822 Contact with and (suspected) exposure to COVID-19; E78.5 Hyperlipidemia, unspecified; F17.210 Nicotine dependence, cigarettes, uncomplicated; G91.2 (Idiopathic) normal pressure hydrocephalus; I12.9 Hypertensive chronic kidney disease with stage 1 through stage 4 chronic kidney disease, or unspecified chronic kidney disease; E11.51 Type 2 diabetes mellitus with diabetic peripheral angiopathy without gangrene; E11.21 Type 2 diabetes mellitus with diabetic nephropathy; N13.6 Pyonephrosis; N20.0 Calculus of kidney; E78.00 Pure hypercholesterolemia, unspecified; Z51.5 Encounter for palliative care; Z79.4 Long term (current) use of insulin; Z79.82 Long term (current) use of aspirin; Z79.899 Other long term (current) drug therapy; Z80.1 Family history of malignant neoplasm of trachea, bronchus and lung; Z82.3 Family history of stroke; Z83.3 Family history of diabetes mellitus; Z89.511 Acquired absence of right leg below knee; Z91.15 Patient's noncompliance with renal dialysis
CPT/HCPCS: 36415; 36556; 36600; 43235; 70450; 71045; 76775; 80053; 80061; 80202; 80320; 81001; 82306; 82570; 82805; 82962; 83036; 83735; 83970; 84100; 84156; 84300; 84484; 84550; 85025; 85610; 85730; 86850; 86900; 86901; 87040; 87070; 87077; 87081; 87086; 87186; 87205; 87426; 92950; 93005; 93306; 93925; 93970; 94002; 94003; 95819; 96361; 96365; 96367; 96375; 96376; C9113; G0378; J0696; J1815; J2250; J2405; J2704; J3490; J7060